=== PATIENT | male | born 1980 | race Caucasian/White ===

== ENCOUNTER → 2016-10-24 | Outpatient (CLI) | payer MEDICAID | LOC: RAD 08:30 | PROVIDERS: ATTEND Family Medicine | DX: M54.16 Radiculopathy, lumbar region (principal) | CPT/HCPCS: 72131 ==

== ENCOUNTER 2016-11-12 05:36 | Day surgery (SDC) | payer MEDICAID ==
[2016-11-05 10:45] LABS: APPEARANCE,URINE CLEAR; BILIRUBIN,URINE NEGATIVE (NEGATIVE); GLUCOSE, URINE NEGATIVE (NEGATIVE); KETONES,URINE NEGATIVE (NEGATIVE); LEUKOCYTE ESTERASE,URINE NEGATIVE (NEGATIVE); NITRITE,URINE NEGATIVE (NEGATIVE); PROTEIN,URINE NEGATIVE (NEGATIVE); URINE SPECIFIC GRAVITY 1.003; UROBILINOGEN,URINE NEGATIVE mg/dL (<2.0)
[2016-11-05 10:53] LABS: HEMATOCRIT 44.8 % (37.9-51.0); HEMOGLOBIN 15.8 g/dL (13.5-17.0); HGB HCT DIFFERENCE 2.6; MEAN CORPUSCULAR HEMOGLOBIN 32.3 pg (27.0-33.4); MEAN CORPUSCULAR HGB CONC 35.3 g/dL (32.0-36.0); MEAN CORPUSCULAR VOLUME 92 fl (80-97); RED BLOOD COUNT 4.89 10^6/uL (4.35-5.55); RED CELL DISTRIBUTION WIDTH 12.4 % (11.5-14.0); WHITE BLOOD COUNT 8.7 10^3/uL (4.0-10.5)
[2016-11-05 11:21] LABS: ANION GAP 12 (5-19); BLOOD UREA NITROGEN 12 mg/dL (7-20); CALCIUM 9.7 mg/dL (8.4-10.2); CARBON DIOXIDE 27 mmol/L (22-30); CHLORIDE 103 mmol/L (98-107); CREATININE RESULT 1.07 mg/dL (0.52-1.25); GLUCOSE 140 mg/dL (75-110); POTASSIUM 4.8 mmol/L (3.6-5.0); SODIUM 141.7 mmol/L (137-145)
[~2016-11-12 05:36] MED LIST: CEFAZOLIN 2 GM/D5W RTU 2 GM/50 ML RTUPB IV PRN; LACTATED RINGERS 1000 ML IV PRN; LIDOCAINE 0.5% INJ-PF (5 MG/ML) 50 ML SDV SUBCUT PRN
[2016-11-12] MEDS ORDERED: FENTANYL CITRATE INJ/PF 100 MCG/2 ML AMPUL ONE (07:03)
[2016-11-12] MEDS ORDERED: HYDROMORPHONE HCL INJ/PF 2 MG/ML AMPULE ONE (07:03)
[2016-11-12] MEDS ORDERED: MIDAZOLAM 2 MG/2 ML INJ ONE (07:03)
[2016-11-12] MEDS ORDERED: PROPOFOL INJ 200 MG/20 ML VIAL IV ONE (07:04)
[2016-11-12] MEDS ORDERED: BUPIVACAINE HCL 0.25 % INJ/PF (2.5 MG/1 ML) 30 ML VIAL ONE (07:54)
[2016-11-12] MEDS ORDERED: FENTANYL CITRATE INJ/PF 100 MCG/2 ML AMPUL IV PRN ×3 (08:14)
[2016-11-12] MEDS ORDERED: DIPHENHYDRAMINE HCL 50 MG/ML VIAL IV PRN (08:14)
[2016-11-12] MEDS ORDERED: MEPERIDINE HCL/PF INJ 25 MG/1 ML DISP.SYRIN IV PRN (08:14)
[2016-11-12] MEDS ORDERED: PROMETHAZINE HCL INJ 25 MG/1 ML VIAL IV PRN ×2 (08:14)
--- NOTE | 2016-11-12 08:36 | Operative Report ---
Operative Report DATE OF SURGERY: 11/12/16 PREOPERATIVE DIAGNOSIS: Partial nail growth with Ingrown nail status post old table saw injury POSTOPERATIVE DIAGNOSIS: Same OPERATION: Right middle finger matrixectomy SURGEON: CECY JASMINE ANESTHESIA: GA TISSUE REMOVED OR ALTERED: None COMPLICATIONS: None ESTIMATED BLOOD LOSS: 5 mL INTRAOPERATIVE FINDINGS: As above PROCEDURE: We have discussed with the patient the alternatives for further care of this condition. They desire to proceed with surgical intervention. I explained to them the nature of the operation to be performed and the expected postoperative course. The possibility of complications is explained and these could involve anesthetic complications, excessive bleeding, infection, injury to surrounding nerves, vessels and tendons, bruising, healing difficulties, scar formation, posttraumatic arthritis and failure to relieve symptoms. The patient expresses the desire to proceed with the operation. Patient was brought to the operating room and induced and intubated in supine position. Patient had received 1 g of Ancef preoperatively. The right upper extremity was prepped and draped in a normal surgical fashion. Finger tourniquet was used and tied around the base of the middle finger. Timeout was done identifying the right middle finger as the correct site. I used a freer elevator to unroof and elevate the partial nails on either side of the nail bed. The middle portion had scarred down. There was no nail and the middle portion. After removing the 2 pieces of partial nail they were ingrown I then proceeded to elevate the perionychium and used electrocautery to burn the nail matrix once I was satisfied with the resection of the nail matrix I then proceeded to use 5-0 nylon to approximate the peroneal came to the nail bed closing the space. I released the the finger tourniquet and then medially the finger reperfused and had bleeding. I used Xeroform 2 x 2 dressing followed by 2 inch Linda and overwrapped it with a 2 inch Erasmo bandage. Patient was extubated and sent to PACU in stable condition.
[2016-11-12] MEDS ORDERED: HYDROCODONE/ACETAMINOPHEN 5-325 MG TABLET PO PRN (08:52)
--- NOTE | 2016-11-12 08:52 | PDOC DISCHARGE SUMMARY ---
Discharge Summary (SDC) - Discharge Final Diagnosis: Table saw injury to the right middle finger with partial nail growth and ingrowth on on the radial sides of the paronychia. Date of Surgery: 11/12/16 Discharge Date: 11/12/16 Treatment or Instructions: Patient will follow up in 1 week. Keep the dressing dry clean and intact until follow-up. Prescriptions: Hydrocodone/Acetaminophen [Mcdaniels 5-325 mg Tablet] 1 - 2 tab PO Q4HP PRN #30 tablet PRN Reason: Referrals: IZA YOUSSEF PA-C [Primary Care Provider] - Discharge Diet: As Tolerated Respiratory Treatments at Home: Deep Breathing/Coughing Discharge Activity: No Lifting/Push/Pulling Home Care Assistance: None Needed Report the Following to Your Physician Immediately: Vomiting, Increase in Pain, Fever over 101 Degrees, Redness, Swelling, Warmth, Drainage-Yellow, Drainage- Green, Drainage-Foul Smelling
[2016-11-12 11:10] VITALS: BP 116/71
== END 2016-11-12 11:25 | disposition home or self-care (01) ==
LOC: OROUT 05:36
PROVIDERS: ATTEND Orthopaedic Surgery
PROC: 0HTRXZZ Resection of Toe Nail, External Approach (ICD-10-PCS; principal; 2016-11-12 07:30)
DX: S69.91XS Unspecified injury of right wrist, hand and finger(s), sequela (principal); S06.33 Contusion and laceration of cerebrum, unspecified; X58.XXXS Exposure to other specified factors, sequela; L60.0 Ingrowing nail; M79.644 Pain in right finger(s); F17.210 Nicotine dependence, cigarettes, uncomplicated; Z79.899 Other long term (current) drug therapy; Z88.5 Allergy status to narcotic agent
CPT/HCPCS: 11750; 36415; 85027; 80048; 81001; J2250; J1170; S0020; J2704; J0690; 400; J3010

== ENCOUNTER 2017-09-23 04:01 | Emergency (ER) | payer MEDICAID ==
[2017-09-23] MEDS ORDERED: ASPIRIN 81 MG TABLET, CHEWABLE PO ONE (04:39)
[2017-09-23 05:27] LABS: ABSOLUTE BASOPHILS # (AUTO) 0.1 10^3/uL (0.0-0.2); ABSOLUTE EOSINOPHILS # (AUTO) 0.3 10^3/uL (0.0-0.6); ABSOLUTE LYMPHOCYTES (AUTO) 2.3 10^3/uL (0.5-4.7); ABSOLUTE MONOCYTES (AUTO) 0.9 10^3/uL (0.1-1.4); ABSOLUTE NEUT (AUTO) 6.5 10^3/uL (1.7-8.2); BASOPHILS % (AUTO) 1.1 % (0-2); HEMATOCRIT 45.1 % (37.9-51.0); LYMPHOCYTES % (AUTO) 22.6 % (13-45); MEAN CORPUSCULAR HEMOGLOBIN 32.4 pg (27.0-33.4); MEAN CORPUSCULAR HGB CONC 35.4 g/dL (32.0-36.0); MEAN CORPUSCULAR VOLUME 91 fl (80-97); MONOCYTES % (AUTO) 8.9 % (3-13); PLATELET COUNT 238 10^3/uL (150-450); RED BLOOD COUNT 4.93 10^6/uL (4.35-5.55); RED CELL DISTRIBUTION WIDTH 12.5 % (11.5-14.0); SEGMENTED NEUTROPHILS % (AUTO) 64.4 % (42-78); TOTAL CELLS COUNTED % (AUTO) 100 %; WHITE BLOOD COUNT 10.1 10^3/uL (4.0-10.5)
--- NOTE | 2017-09-23 05:35 | RADIOLOGY REPORT (SQ) ---
EXAM DESCRIPTION: CHEST PA/LAT CLINICAL HISTORY: cp, syncope COMPARISON: None. FINDINGS: Frontal and lateral views of the chest. The cardiomediastinal silhouette has normal size and contour. No consolidation, pneumothorax, or pleural effusion. No displaced rib fractures identified. Upper abdominal soft tissues are unremarkable. IMPRESSION: 1. No acute pulmonary process identified.
[2017-09-23 05:40] LABS: ALANINE AMINOTRANSFERASE 41 U/L (21-72); ALBUMIN 4.5 g/dL (3.5-5.0); ALKALINE PHOSPHATASE 114 U/L (38-126); ANION GAP 13 (5-19); ASPARTATE AMINO TRANSFERASE 23 U/L (17-59); BILIRUBIN,DIRECT 0.2 mg/dL (0.0-0.4); BILIRUBIN,TOTAL 0.4 mg/dL (0.2-1.3); BLOOD UREA NITROGEN 15 mg/dL (7-20); CALCIUM 9.8 mg/dL (8.4-10.2); CARBON DIOXIDE 27 mmol/L (22-30); CHLORIDE 103 mmol/L (98-107); CREATINE KINASE 132 U/L (55-170); GLUCOSE 90 mg/dL (75-110); MAGNESIUM 2.1 mg/dL (1.6-2.3); POTASSIUM 4.2 mmol/L (3.6-5.0); SODIUM 143.1 mmol/L (137-145); TOTAL PROTEIN 7.3 g/dL (6.3-8.2)
--- NOTE | 2017-09-23 05:46 | ER Document Report ---
ED Cardiac - General Mode of Arrival: Wheelchair Information source: Patient TRAVEL OUTSIDE OF THE [place] IN LAST 30 DAYS: No - HPI Patient complains to provider of: Chest pain Was the onset of pain: Sudden Chest pain location: Substernal Quality of pain: Achy Pain level currently: 1 Cardiac risk factors: Smoker, + Family history Associated symptoms: Syncope. denies: Abdominal pain, Nausea/vomiting Exacerbated by: Denies Relieved by: Nothing Similar symptoms previously: No Recently seen / treated by doctor: No <WILLIAM GARCIA - Last Filed: 09/23/17 07:11> <ISA HOPE - Last Filed: 09/23/17 11:08> - General Chief Complaint: Chest Pain Stated Complaint: DIZZINESS Time Seen by Provider: 09/23/17 04:23 Notes: Patient states that he was watching TV this morning and he stood up to go to the bathroom at around 3 am. Patient states that while he was in the bathroom he started to have some chest pain and he woke up after passing out. Patient states that he suspects that he had a space on the toilet and complains of chin and right facial tenderness. Patient states that after he woke up he walked to the bedroom and his woke up. Patient states that he had a witnessed syncopal episode. Patient presently denies any complaints other than facial tenderness. Patient denies any chest pain, nausea, vomiting or dyspnea at this time. Patient denies headache pain. (WILLIAM GARCIA) - Related Data Allergies/Adverse Reactions: rice Allergy (Severe, Verified 11/05/16 10:05) Anaphylaxis oxycodone HCl [From Percocet] Adverse Reaction (Verified 11/05/16 10:05) Nausea Home Medications: Current Home Medications Cetirizine HCl [Allergy] 10 mg PO DAILY 09/23/17 [History] Cholecalciferol (Vitamin D3) [Vitamin D3] 1,000 unit PO DAILY 09/23/17 [History] Past Medical History - General Information source: Patient - Social History Smoking Status: Current Every Day Smoker Drug Abuse: None Occupation: self employed Lives with: Spouse/Significant other Family History: Reviewed & Not Pertinent Patient has suicidal ideation: No Patient has homicidal ideation: No - Past Medical History Cardiac Medical History: Denies: Hx Coronary Artery Disease, Hx Heart Attack Pulmonary Medical History: Reports: Hx Asthma - MILD , Hx Bronchitis - chronic, Hx Pneumonia - CHILD Denies: Hx COPD Neurological Medical History: Denies: Hx Cerebrovascular Accident, Hx Seizures Renal/ Medical History: Reports: Hx Kidney Stones. Denies: Hx Peritoneal Dialysis GI Medical History: Reports: Hx Gastroesophageal Reflux Disease Musculoskeltal Medical History: Reports Hx Arthritis - DEGENERATIVE DISC DISEASE Psychiatric Medical History: Reports: Hx Depression, Hx Post Traumatic Stress Disorder Past Surgical History: Reports: Hx Orthopedic Surgery - knee. wrist; shoulder; ankles - Immunizations Hx Diphtheria, Pertussis, Tetanus Vaccination: Yes <WILLIAM GARCIA - Last Filed: 09/23/17 07:11> Review of Systems - Review of Systems Constitutional: No symptoms reported. denies: Fever EENT: No symptoms reported Cardiovascular: Chest pain, Syncope Respiratory: No symptoms reported. denies: Cough, Short of breath Gastrointestinal: No symptoms reported. denies: Abdominal pain, Nausea, Vomiting Genitourinary: No symptoms reported Male Genitourinary: No symptoms reported Musculoskeletal: No symptoms reported Skin: No symptoms reported Hematologic/Lymphatic: No symptoms reported Neurological/Psychological: Lost consciousness <WILLIAM GARCIA - Last Filed: 09/23/17 07:11> Physical Exam - General General appearance: Appears well, Alert In distress: None - HEENT Head: Normocephalic, Tenderness - tenderness to r maxillary/zygomatic arch area. No: Flores's sign, Racoon's eyes Eyes: Normal Extraocular movements intact: Yes Eyelashes: Normal Pupils: PERRL Ears: Normal External canal: Normal Tympanic membrane: Normal. No: Hemotympanum Nasal: Normal Mouth/Lips: Normal. No: Dental fracture Mucous membranes: Normal Pharynx: Normal Neck: Normal, Supple. No: Lymphadenopathy - Respiratory Respiratory status: No respiratory distress Chest status: Nontender Breath sounds: Normal. No: Rales, Rhonchi, Stridor, Wheezing Chest palpation: Normal - Cardiovascular Rhythm: Regular Heart sounds: S1 appreciated, S2 appreciated Murmur: No - Abdominal Inspection: Normal Distension: No distension Bowel sounds: Normal Tenderness: Nontender Organomegaly: No organomegaly - Back Back: Normal, Nontender. No: Deformity/step-off, Vertebra tenderness - Extremities General upper extremity: Normal inspection, Nontender, Normal ROM General lower extremity: Normal inspection, Nontender, Normal ROM - Neurological Neuro grossly intact: Yes Cognition: Normal Ha Coma Scale Eye Opening: Spontaneous Ha Coma Scale Verbal: Oriented Ha Coma Scale Motor: Obeys Commands Boyds Coma Scale Total: 15 - Psychological Associated symptoms: Normal affect, Normal mood - Skin Skin Temperature: Warm Skin Moisture: Dry Skin Color: Normal <WILLIAM GARCIA - Last Filed: 09/23/17 07:11> <ISA HOPE - Last Filed: 09/23/17 11:08> - Vital signs Vitals: Temp Pulse Resp BP Pulse Ox 97.4 F 101 H 20 127/79 H 98 09/23/17 04:18 09/23/17 04:18 09/23/17 04:18 09/23/17 04:18 09/23/17 04:18 - HEENT Notes: no midline tenderness (MILHENRIETTAKADY) Course - Laboratory Result Diagrams: 09/23/17 05:15 09/23/17 05:15 <MILWILLIAM - Last Filed: 09/23/17 07:11> - Laboratory Result Diagrams: 09/23/17 05:15 09/23/17 05:15 <ISA HOPE - Last Filed: 09/23/17 11:08> - Re-evaluation Re-evalutation: 09/23/17 06:00 Pt's VSS, pt denies any chest pain or complaints at this time. 09/23/17 06:[address] Dunn who agrees with planned workup. Does advise outpt f/u with cardiology. 09/23/17 07:11 Bedside report and handoff given to MAGALYS Hope (MILHENRIETTAKADY) - Vital Signs Vital signs: Temp Pulse Resp BP Pulse Ox 97.4 F 101 H 19 101/66 94 09/23/17 04:18 09/23/17 04:18 09/23/17 09:01 09/23/17 09:01 09/23/17 09:01 - Transfer of Care Notes: 09/23/17 10:50 I assumed care of patient fromWilliam Garcai the night club manager APC who originated patient's chart and was following her up until the time of her 70 when she was going home. She left me with the instructions that patient had been worked up entirely for near syncopal or syncopal episode and that his first set of troponins and were negative. She is discussed this with Dr. Hdz and he feels that this can be worked up outpatient if the next set of cardiac enzymes were negative. We have extended it out to 6 hours from the original onset of the discomfort and return of the troponin is still less than 0.12. Patient has no chest pain no shortness of breath no other symptomatology at this time. Again it was checked with the patient he does have a primary care provider and we will follow up by giving him a artillery specialist to follow-up with as well. On discharge patient's vital signs are perfectly normal and he is anxious to go home. Again I discussed this with the and who is the patient and both of them understand the importance of following up outpatient and to do so starting today by making contact and set an appointment. 09/23/17 11:00 (ISA HOPE) Discharge <WILLIAM GARCIA - Last Filed: 09/23/17 07:11> <ISA HOPE - Last Filed: 09/23/17 11:08> - Discharge Clinical Impression: Syncope Qualifiers: Syncope type: unspecified Qualified Code(s): R55 - Syncope and collapse Chest pain Qualifiers: Chest pain type: unspecified Qualified Code(s): R07.9 - Chest pain, unspecified Condition: Good Disposition: HOME, SELF-CARE Instructions: Chest Pain of Unclear Cause ([facility]), Syncopal Episode ([facility]) Additional Instructions: Home and rest. Highly suggest no strenuous activity until you can follow-up with your primary care provider. Highly suggest that you contact your office today I am giving you the name of the artillery specialist econometrics professor today is Dr. Devika Zamorano. You may also contact his office to see if they can accommodate you as well. If you have any concerns or if this were to transpire happen again please return to ER at once. Also highly suggest do not drive a car or work at [employer] until after you have been reevaluated by her primary. Forms: Return to Work Referrals: HARLAN ZAMORANO MD [ACTIVE STAFF] - Follow up as needed
[2017-09-23 05:52] LABS: CREATINE KINASE MB 0.47 ng/mL (<4.55)
[2017-09-23 05:53] LABS: TROPONIN I < 0.012 ng/mL
--- NOTE | 2017-09-23 05:56 | RADIOLOGY REPORT (SQ) ---
EXAM DESCRIPTION: CT HEAD WITHOUT CLINICAL HISTORY: syncope, facial injury COMPARISON: None available TECHNIQUE: Axial CT of the head obtained from the skull apex to the skull base without contrast. FINDINGS: No acute intracranial hemorrhage identified. No mass, mass effect, shift of the midline, abnormal extra-axial fluid collection or CT evidence of acute ischemic change identified. The ventricular system is unremarkable. No acute abnormalities of the supratentorial white matter, basal ganglia, cerebellum, or brainstem. The visualized paranasal sinuses and the mastoids are clear. No skull fracture identified. Visualized orbits and globes are unremarkable. DLP:1162.97 mGy-cm IMPRESSION: 1. No acute intracranial abnormality identified. This exam was performed according to our departmental dose-optimization program, which includes automated exposure control, adjustment of the mA and/or kV according to patient size and/or use of iterative reconstruction technique.
--- NOTE | 2017-09-23 06:01 | RADIOLOGY REPORT (SQ) ---
EXAM DESCRIPTION: CT FACIAL AREA WITHOUT CLINICAL HISTORY: syncope, facial injury COMPARISON: None available TECHNIQUE: Axial CT of the facial bones obtained without contrast. FINDINGS: Orbital floors and mcdaniel are intact. Leftward deviation of the nasal septum without evidence of acute fracture. No acute nasal bone fracture identified. Zygomatic processes are intact. Pterygoid plates are intact. Maxillary antral mcdaniel are intact. No fracture of the maxillary hard palate. Paranasal sinuses and mastoid air cells are well aerated. No fracture of the mandible identified. No mandibular condylar dislocation. No definite subcutaneous soft tissue abnormality identified. Visualized portions of the cervical spine and skull base are intact. No lymphadenopathy. No abnormalities of visualized parotid or submandibular glands. No abnormalities of the oropharynx or nasopharynx. Visualized skull base is unremarkable. Visualized orbital contents are unremarkable. DLP: 526.23 mGy-cm IMPRESSION: 1. No acute facial bone fracture identified. This exam was performed according to our departmental dose-optimization program, which includes automated exposure control, adjustment of the mA and/or kV according to patient size and/or use of iterative reconstruction technique.
[2017-09-23 06:32] LABS: APPEARANCE,URINE CLEAR; BILIRUBIN,URINE NEGATIVE (NEGATIVE); COLOR,URINE STRAW; GLUCOSE, URINE NEGATIVE (NEGATIVE); KETONES,URINE NEGATIVE (NEGATIVE); LEUKOCYTE ESTERASE,URINE NEGATIVE (NEGATIVE); NITRITE,URINE NEGATIVE (NEGATIVE); PROTEIN,URINE NEGATIVE (NEGATIVE); URINE SPECIFIC GRAVITY 1.004; UROBILINOGEN,URINE NEGATIVE mg/dL (<2.0)
[2017-09-23 06:47] LABS: URINE AMPHETAMINES SCREEN NEGATIVE; URINE BARBITURATES SCREEN NEGATIVE; URINE BENZODIAZEPINES SCREEN NEGATIVE; URINE COCAINE SCREEN NEGATIVE; URINE MARIJUANA (THC) SCREEN NEGATIVE; URINE METHADONE SCREEN NEGATIVE; URINE PHENCYCLIDINE SCREEN NEGATIVE
--- NOTE | 2017-09-23 08:02 | EKG REPORT ---
SEVERITY:- BORDERLINE ECG - SINUS RHYTHM PROBABLE LEFT ATRIAL ABNORMALITY BORDERLINE INFERIOR Q WAVES : Confirmed by: Nataliya Willams MD 23-Sep-2017 08:01:02
[2017-09-23 11:26] VITALS: BP 120/76
== END 2017-09-23 11:25 | disposition home or self-care (01) ==
LOC: ER 04:01
DX: R55 Syncope and collapse (principal); R07.9 Chest pain, unspecified; R42 Dizziness and giddiness; F17.200 Nicotine dependence, unspecified, uncomplicated; Z79.899 Other long term (current) drug therapy
CPT/HCPCS: 36415; 70450; 70486; 71020; 80053; 80307; 81001; 82550; 82553; 83735; 84484; 85025; 85379; 93005; 93010; 99285

== ENCOUNTER → 2017-10-27 | Outpatient (CLI) | payer MEDICAID ==
--- NOTE | 2017-10-27 19:47 | XCELERA REPORT ---
[address] [address] Tel: [phone] Fax: [phone] Transthoracic Echocardiogram Report Name: LUCINDA ISA Radha Age: 37 yrs Gender: Male : 1980 Patient Status: Outpatient Patient Location: [facility] Study Date: 10/27/2017 01:08 PM Height: 71 in Weight: 192 lb BSA: 2.1 m2 Reason For Study: SYNCOP Ordering Physician: CHAVA CRISTINA Performed By: Bela Faulkner Interpretation Summary No structural heart disease on this echo to cause syncope. MMode/2D Measurements & Calculations RVDd: 3.0 cm LVIDd: 5.3 cm FS: 35.8 % Ao root diam: 2.7 cm IVSd: 1.0 cm LVIDs: 3.4 cm EDV(Teich): 135.7 ml LVPWd: 1.0 cm ESV(Teich): 47.7 ml Ao root area: 5.5 cm2 EF(Teich): 64.9 % LA dimension: 3.7 cm Doppler Measurements & Calculations MV E max bertha: MV P1/2t max bertha: Ao V2 max: LV V1 max P.2 cm/sec 67.1 cm/sec 114.8 cm/sec 4.0 mmHg MV A max bertha: MV P1/2t: 79.1 msec Ao max PG: LV V1 max: 37.5 cm/sec 5.3 mmHg 99.7 cm/sec MV E/A: 1.7 MVA(P1/2t): 2.8 cm2 MV dec slope: 248.6 cm/sec2 PA V2 max: 86.9 cm/sec PA max P.0 mmHg Left Ventricle The left ventricle is normal in size, thickness and function. There is normal left ventricular wall thickness. No SARMAD or IHSS no Abnormal LVOT gradient. The left ventricle has normal cavity size with globally normal systolic function. Estimated left ventricular ejection fraction is 55%. Doppler measurements suggest normal left ventricular diastolic function. No regional wall motion abnormalities noted. There is no thrombus. Right Ventricle The right ventricle is grossly normal size. Atria The right atrium is normal. The left atrial size is normal. No left atrial mass or thrombus visualized. The interatrial septum is intact with no evidence for an atrial septal defect. Mitral Valve The mitral valve is normal in structure and function. There is no evidence of mitral valve prolapse. There is no mitral valve stenosis. There is a trace to mild amount of mitral regurgitation. Aortic Valve The aortic valve opens well. The aortic valve is trileaflet. There is no aortic valvular vegetation. There is no aortic valve stenosis. No aortic regurgitation is present. Tricuspid Valve The tricuspid is normal in structure and function. No tricuspid regurgitation. Pulmonic Valve The pulmonic valve is not well visualized. There is no pulmonic valvular regurgitation. Great Vessels The aortic root is normal size. Effusions There is no pericardial effusion. I WMSI = 1.00 % Normal = 100 Segments Size X - Cannot 1 - Normal 2 - 3 - Akinetic4 - 1-2 small Interpret Hypokinetic Dyskinetic 3-5 moderate 5 - 6-14 large Aneurysmal 15-16 diffuse : CHAVA CRISTINA > Jose Restrepo
== END ==
LOC: SP 13:02
PROVIDERS: ATTEND Specialist
DX: R55 Syncope and collapse (principal)
CPT/HCPCS: 93306

== ENCOUNTER → 2017-11-01 | Outpatient (CLI) | payer MEDICAID ==
--- NOTE | 2017-11-01 12:07 | DRAGON STRESS TEST REPORT ---
EXERCISE TREADMILL TEST. DATE OF PROCEDURE: November 01, 2017 INDICATION: Patient with unspecified chest pain. Coronary risk factors: Smoking. Resting EKG: Sinus rhythm, no baseline ST segment changes. Stress EKG: No significant changes noted with with exercise treadmill. Reason for termination: Dyspnea and fatigue. PROCEDURE REPORT: Baseline heart rate: 79 beats per minute with blood pressure of 122/85. Patient had no significant complaints at baseline. Patient was exercised on a standard Jayy protocol. Patient exercised for total of 11 minutes and 45 seconds. Exercise was stopped because of fatigue and shortness of breath. Patient denied any chest arm or neck discomfort during the exercise, at peak exercise or in recovery. If automatic blood pressure recorded and if felt not accurate manual blood pressure then were recorded at appropriate intervals. Peak heart rate: 157 bpm, 85% of predicted maximum. Peak blood pressure: 186/77 mmHg. Double product: Adequate kcal Exercise EKG: Showed some baseline artifact during exercise but no significant ST segment changes noted. CONCLUSIONS: Normal EKG and hemodynamic response to exercise. Good exercise tolerance. Negative EKG changes with exercise. RECOMMENDATIONS: Aggressive risk factor modification, medical therapy. Consider cardiology consultation if clinically indicated. Carmel Zamorano M.D., CHRISTIE Fur Machine Operator chief technician x ray, Board certified in cardiovascular diseases, Nuclear cardiology, Echocardiography Cardiac CT and cardiac MRI Ph. [phone] Ph. [phone] [facility]
== END ==
LOC: SP 09:56
PROVIDERS: ATTEND Specialist
DX: R07.9 Chest pain, unspecified (principal); R06.00 Dyspnea, unspecified; R53.83 Other fatigue
CPT/HCPCS: 93017

== ENCOUNTER 2018-03-29 16:34 | Emergency (ER) | payer OTHER ==
[2018-03-29] MEDS ORDERED: FENTANYL CITRATE INJ/PF 100 MCG/2 ML AMPUL IV ONE (17:59)
--- NOTE | 2018-03-29 17:59 | ER Document Report ---
ED Medical Screen (RME) - General Chief Complaint: Abdominal Pain Stated Complaint: ABDOMINAL PAIN Time Seen by Provider: 03/29/18 17:50 Mode of Arrival: Wheelchair Information source: Patient Notes: 37 yr old male presents with hcomplaints of RUQ pain that started 2am today. pt denies any fevers or chills, denies any nausea vomiting or diarrhea I have greeted and performed a rapid initial assessment of this patient. A comprehensive ED assessment and evaluation of the patient, analysis of test results and completion of the medical decision making process will be conducted by additional ED providers. PHYSICAL EXAMINATION: GENERAL: Well-appearing, well-nourished and in moderate acute distress. HEAD: Atraumatic, normocephalic. EYES: Pupils equal round extraocular movements intact, conjunctiva are normal. ENT: Nares patent NECK: Normal range of motion LUNGS: No respiratory distress Musculoskeletal: Normal range of motion NEUROLOGICAL: Normal speech, normal gait. PSYCH: Normal mood, normal affect. SKIN: Warm, Dry, normal turgor, no rashes or lesions noted. TRAVEL OUTSIDE OF THE [place] IN LAST 30 DAYS: No - Related Data Allergies/Adverse Reactions: rice Allergy (Severe, Verified 11/05/16 10:05) Anaphylaxis oxycodone HCl [From Percocet] Adverse Reaction (Verified 11/05/16 10:05) Nausea Past Medical History - Past Medical History Cardiac Medical History: Reports: Hx Hypertension Denies: Hx Coronary Artery Disease, Hx Heart Attack Pulmonary Medical History: Reports: Hx Asthma - MILD , Hx Bronchitis - chronic, Hx Pneumonia - CHILD Denies: Hx COPD Neurological Medical History: Denies: Hx Cerebrovascular Accident, Hx Seizures Renal/ Medical History: Reports: Hx Kidney Stones. Denies: Hx Peritoneal Dialysis GI Medical History: Reports: Hx Gastroesophageal Reflux Disease Musculoskeltal Medical History: Reports Hx Arthritis - DEGENERATIVE DISC DISEASE Psychiatric Medical History: Reports: Hx Depression, Hx Post Traumatic Stress Disorder Past Surgical History: Reports: Hx Orthopedic Surgery - knee. wrist; shoulder; ankles - Immunizations Hx Diphtheria, Pertussis, Tetanus Vaccination: Yes Physical Exam - Vital signs Vitals: Temp Pulse Resp BP Pulse Ox 99 F 85 16 129/90 H 97 03/29/18 16:54 03/29/18 16:54 03/29/18 16:54 03/29/18 16:54 03/29/18 16:54 Course - Vital Signs Vital signs: Temp Pulse Resp BP Pulse Ox 99 F 85 16 129/90 H 97 03/29/18 16:54 03/29/18 16:54 03/29/18 16:54 03/29/18 16:54 03/29/18 16:54 Doctor's Discharge - Discharge Referrals: CHAVA CRISTINA MD [Primary Care Provider] - Follow up as needed
[2018-03-29 18:34] LABS: ABSOLUTE BASOPHILS # (AUTO) 0.1 10^3/uL (0.0-0.2); ABSOLUTE EOSINOPHILS # (AUTO) 0.1 10^3/uL (0.0-0.6); ABSOLUTE LYMPHOCYTES (AUTO) 1.5 10^3/uL (0.5-4.7); ABSOLUTE MONOCYTES (AUTO) 0.7 10^3/uL (0.1-1.4); BASOPHILS % (AUTO) 0.9 % (0-2); HEMATOCRIT 45.6 % (37.9-51.0); HEMOGLOBIN 16.2 g/dL (13.5-17.0); LYMPHOCYTES % (AUTO) 17.5 % (13-45); MEAN CORPUSCULAR HEMOGLOBIN 32.6 pg (27.0-33.4); MEAN CORPUSCULAR HGB CONC 35.5 g/dL (32.0-36.0); MEAN CORPUSCULAR VOLUME 92 fl (80-97); MONOCYTES % (AUTO) 8.3 % (3-13); PLATELET COUNT 244 10^3/uL (150-450); RED BLOOD COUNT 4.98 10^6/uL (4.35-5.55); RED CELL DISTRIBUTION WIDTH 12.6 % (11.5-14.0); SEGMENTED NEUTROPHILS % (AUTO) 72.3 % (42-78); TOTAL CELLS COUNTED % (AUTO) 100 %; WHITE BLOOD COUNT 8.3 10^3/uL (4.0-10.5)
[2018-03-29 19:00] LABS: ALANINE AMINOTRANSFERASE 27 U/L (21-72); ALBUMIN 4.6 g/dL (3.5-5.0); ALKALINE PHOSPHATASE 93 U/L (38-126); ANION GAP 13 (5-19); ASPARTATE AMINO TRANSFERASE 19 U/L (17-59); BILIRUBIN,DIRECT 0.3 mg/dL (0.0-0.4); BILIRUBIN,TOTAL 0.7 mg/dL (0.2-1.3); BLOOD UREA NITROGEN 14 mg/dL (7-20); CALCIUM 9.7 mg/dL (8.4-10.2); CARBON DIOXIDE 27 mmol/L (22-30); CHLORIDE 105 mmol/L (98-107); GLUCOSE 100 mg/dL (75-110); LIPASE 38.2 U/L (23-300); POTASSIUM 4.6 mmol/L (3.6-5.0); TOTAL PROTEIN 7.6 g/dL (6.3-8.2)
[2018-03-29 19:10] LABS: APPEARANCE,URINE CLEAR; BILIRUBIN,URINE NEGATIVE (NEGATIVE); COLOR,URINE YELLOW; GLUCOSE, URINE NEGATIVE (NEGATIVE); KETONES,URINE NEGATIVE (NEGATIVE); LEUKOCYTE ESTERASE,URINE NEGATIVE (NEGATIVE); NITRITE,URINE NEGATIVE (NEGATIVE); PROTEIN,URINE NEGATIVE (NEGATIVE); URINE SPECIFIC GRAVITY 1.009
--- NOTE | 2018-03-29 19:33 | RADIOLOGY REPORT (SQ) ---
EXAM DESCRIPTION: U/S ABDOMEN LIMITED W/O DOP COMPLETED DATE/TIME: 03/29/2018 7:21 pm REASON FOR STUDY: RUQ pain COMPARISON: None. TECHNIQUE: Dynamic and static grayscale images acquired of the abdomen and recorded on PACS. Additio nal selected color Doppler and spectral images recorded. LIMITATIONS: Bowel gas FINDINGS: PANCREAS: Not seen. LIVER: 15.3 cm. Normal echotexture. LIVER VASCULATURE: Normal directional flow of the main portal vein and hepatic veins. GALLBLADDER: No stones. Normal wall thickness. No pericholecystic fluid. ULTRASOUND-DETECTED NAGEL'S SIGN: Negative. INTRAHEPATIC DUCTS AND COMMON DUCT: CBD and intrahepatic ducts normal caliber. No filling defects. INFERIOR VENA CAVA: Patent. AORTA: No aneurysm in the mid and distal aorta. Proximal aorta was obscured by gas. RIGHT KIDNEY: Normal size, 11 cm. Normal echogenicity. No solid or suspicious solid masses. There a re multiple small hypoechoic cortical lesions with some internal echoes. No hydronephrosis. PERITONEAL AND RIGHT PLEURAL SPACE: No ascites or effusions. OTHER: No other significant findings. IMPRESSION: The study is essentially normal. There are some small renal cortical cysts. Some small calcifications cannot be excluded. TECHNICAL DOCUMENTATION: JOB ID: [id number] [employer]- All Rights Reserved Reading location - IP/workstation name: [email or web address]
[2018-03-29] MEDS ORDERED: KETOROLAC TROMETHAMINE INJ/PF 30 MG/1 ML SDV IV ONE (20:03)
[2018-03-29] MEDS ORDERED: ACETAMINOPHEN 325 MG TABLET PO ONE (20:12)
[2018-03-29] MEDS ORDERED: HYDROCODONE/ACETAMINOPHEN 5-325 MG (6 TAB/ER DISP) PO PRN (20:12)
[2018-03-29] MEDS ORDERED: ONDANSETRON ODT 4 MG TAB (6 TAB/ER DISP) PO PRN (20:12)
[2018-03-29] MEDS ORDERED: MORPHINE SULFATE IR 15 MG TABLET PO ONE (20:12)
[2018-03-29] MEDS ORDERED: TAMSULOSIN HCL 0.4 MG CAP.SR.24H PO ONE (20:13)
--- NOTE | 2018-03-29 20:18 | ER Document Report ---
ED General - General Chief Complaint: Abdominal Pain Stated Complaint: ABDOMINAL PAIN Time Seen by Provider: 03/29/18 17:50 Mode of Arrival: Wheelchair Notes: Patient is a 37-year-old male who presents with 24 hours of progressively worsening right upper abdominal pain. The patient states that the pain started last night, he came home, went to sleep and states when he woke up he was in tears the pain was so bad. He describes it as a stabbing, severe pain to his right upper abdomen. Nothing improves or worsens this pain. He denies any history of similar symptoms in the past. He notes associated nausea but no vomiting with this pain. No lower abdominal pain, chest pain or shortness of breath. He reports a history of kidney stones. He has not seen his general doctor regarding today's concerns. TRAVEL OUTSIDE OF THE [place] IN LAST 30 DAYS: No - Related Data Allergies/Adverse Reactions: rice Allergy (Severe, Verified 03/29/18 18:32) Anaphylaxis oxycodone HCl [From Percocet] Adverse Reaction (Verified 03/29/18 18:32) Nausea Past Medical History - General Information source: Patient - Social History Smoking Status: Current Every Day Smoker Chew tobacco use (# tins/day): No Frequency of alcohol use: None Drug Abuse: None Lives with: Spouse/Significant other Family History: Reviewed & Not Pertinent Patient has suicidal ideation: No Patient has homicidal ideation: No - Past Medical History Cardiac Medical History: Reports: Hx Hypertension Denies: Hx Coronary Artery Disease, Hx Heart Attack Pulmonary Medical History: Reports: Hx Asthma - MILD , Hx Bronchitis - chronic, Hx Pneumonia - CHILD Denies: Hx COPD Neurological Medical History: Denies: Hx Cerebrovascular Accident, Hx Seizures Renal/ Medical History: Reports: Hx Kidney Stones. Denies: Hx Peritoneal Dialysis GI Medical History: Reports: Hx Gastroesophageal Reflux Disease Musculoskeltal Medical History: Reports Hx Arthritis - DEGENERATIVE DISC DISEASE Psychiatric Medical History: Reports: Hx Depression, Hx Post Traumatic Stress Disorder Past Surgical History: Reports: Hx Orthopedic Surgery - knee. wrist; shoulder; ankles - Immunizations Hx Diphtheria, Pertussis, Tetanus Vaccination: Yes Review of Systems - Review of Systems Notes: Constitutional: Negative for fever. HENT: Negative for sore throat. Eyes: Negative for visual changes. Cardiovascular: Negative for chest pain. Respiratory: Negative for shortness of breath. Gastrointestinal: Positive for abdominal pain and nausea Genitourinary: Negative for dysuria. Musculoskeletal: Negative for back pain. Skin: Negative for rash. Neurological: Negative for headaches, weakness or numbness. 10 point ROS negative except as marked above and in HPI. Physical Exam - Vital signs Vitals: Temp Pulse Resp BP Pulse Ox 99 F 85 16 129/90 H 97 03/29/18 16:54 03/29/18 16:54 03/29/18 16:54 03/29/18 16:54 03/29/18 16:54 Interpretation: Normal Notes: PHYSICAL EXAMINATION: GENERAL: Appears moderately uncomfortable but in no acute distress HEAD: Atraumatic, normocephalic. EYES: Pupils equal round and reactive to light, extraocular movements intact, sclera anicteric, conjunctiva are normal. ENT: nares patent, oropharynx clear without exudates. Moderately dry mucous membranes. NECK: Normal range of motion, supple without lymphadenopathy LUNGS: Breath sounds clear to auscultation bilaterally and equal. No wheezes rales or rhonchi. HEART: Regular rate and rhythm without murmurs ABDOMEN: Soft, focal tenderness the right upper quadrant and severe tenderness on palpation of the right flank. No other localized areas of tenderness. No rebound or guarding. EXTREMITIES: Normal range of motion, no pitting or edema. No cyanosis. NEUROLOGICAL: No focal neurological deficits. Moves all extremities spontaneously and on command. PSYCH: Normal mood, normal affect. SKIN: Warm, Dry, normal turgor, no rashes or lesions noted. Course - Re-evaluation Re-evalutation: 03/29/18 20:13 Presents with findings consistent with acute nephrolithiasis. Urinalysis does show hematuria. Right upper quadrant ultrasound was obtained this patient did have some right upper quadrant abdominal pain that shows no evidence of acute cholecystitis. Patient does also have marketed right flank tenderness. Laboratory otherwise unremarkable. Pain was able to be controlled here in the emergency department. Patient is tolerating oral intake. Clinical history is not consistent with an acute abdominal aneurysm or dissection, [place], or pulmonary embolus. Urinalysis does not show findings consistent with an infected stone. Vitals have remained within normal limits. At this time will discharge with return precautions and follow-up recommendations. Verbal discharge instructions given a the bedside and opportunity for questions given. Medication warnings reviewed. Patient is in agreement with this plan and has verbalized understanding of return precautions and the need for primary care follow-up in the next 24-72 hours. - Vital Signs Vital signs: Temp Pulse Resp BP Pulse Ox 99 F 77 18 127/81 H 98 03/29/18 16:54 03/29/18 21:03 03/29/18 21:03 03/29/18 21:03 03/29/18 21:03 - Laboratory Result Diagrams: 03/29/18 18:15 03/29/18 18:15 Laboratory results interpreted by me: 03/29/18 18:40 Urine Blood LARGE H Urine Urobilinogen 2.0 H - Diagnostic Test Radiology reviewed: Reports reviewed Discharge - Discharge Clinical Impression: Right flank pain, Right upper quadrant abdominal pain, Kidney stone on right side Condition: Good Disposition: HOME, SELF-CARE Additional Instructions: Your symptoms should improve over the course of the next one week. If you continue to have pain for greater than one week or your pain is not controlled with the pain medications that you have been sent home with you need to return to the emergency department. Please also return if you develop fever, persistent vomiting, or any other symptoms that are concerning to you. You should take ibuprofen 600 mg every 6 hours and use the oral morphine as prescribed only for pain not controlled by ibuprofen. You are also been sent home with a medication called Flomax to help pass the stone. You've been given Zofran to assist with nausea. Please follow-up with urology in the next 2-3 days. Prescriptions: Morphine Sulfate [Morphine Ir 15 mg Tablet] 15 mg PO Q6HP PRN #12 tablet PRN Reason: Tamsulosin HCl [Flomax 0.4 mg Cap.sr] 0.4 mg PO DAILY #7 cap.sr.24h Referrals: CHAVA CRISTINA MD [ACTIVE STAFF] - Follow up as needed SAYRA LOWE MD [BROTH MIXER] - Follow up as needed
[2018-03-29 21:03] VITALS: BP 127/81
== END 2018-03-29 21:05 | disposition home or self-care (01) ==
LOC: ER 16:34
DX: R10.11 Right upper quadrant pain (principal); N20.0 Calculus of kidney; F17.200 Nicotine dependence, unspecified, uncomplicated; I10 Essential (primary) hypertension; Z88.6 Allergy status to analgesic agent; Z87.442 Personal history of urinary calculi
CPT/HCPCS: 99284; 96374; 96375; 36415; 83690; 85025; 80053; 81001; 76705; J3010; J1885